=== PATIENT | female | born 1985 | race Hispanic/Latino ===

== ENCOUNTER 2023-12-14 12:24 | Emergency (ER) | payer OTHER ==
[2023-12-14] MEDS ORDERED: Ibuprofen 200 MG TAB ONE (12:49)
== END 2023-12-14 13:46 | disposition home or self-care (01) ==
LOC: BURERS 12:24
DX: S40.011A Contusion of right shoulder, initial encounter (principal); E11.9 Type 2 diabetes mellitus without complications; W20.8XXA Other cause of strike by thrown, projected or falling object, initial encounter; Y93.89 Activity, other specified; Y92.69 Other specified industrial and construction area as the place of occurrence of the external cause; Z79.84 Long term (current) use of oral hypoglycemic drugs